=== PATIENT | female | born 1955 | race Caucasian/White ===

== ENCOUNTER 2018-04-14 10:40 | Observation (INO) ==
--- NOTE | 2018-04-14 12:05 | Emergency Department Note ---
Disposition Clinical Impression: Deep vein thrombosis of lower extremity Qualifiers: Affected thrombotic vein of extremity: unspecified lower extremity distal vein Chronicity: acute Laterality: right Qualified Code(s): I82.4Z1 - Acute embolism and thrombosis of unspecified deep veins of right distal lower extremity Disposition: Admitted As Inpatient Condition: Fair Referrals: Karen Thompson CNP [Primary Care Provider] - Forms: ED Satisfaction Letter General Adult HPI - General Chief complaint: ED Extremity Problem,Nontraumatic Stated complaint: Right leg swelling/pain Time Seen by Provider: 04/14/18 10:59 Source: patient Limitations: no limitations Nursing Notes Reviewed: Yes Vital Signs Reviewed: Yes - History of Present Illness Pain Scale: 10 - Related Data Previous Rx's Medication Instructions Recorded traMADol [Ultram] 50 mg PO Q6HR #12 tablet 10/19/15 Allergies Allergy/AdvReac Type Severity Reaction Status Date / Time Diclofenac [From Voltaren] Allergy See Verified 10/19/15 00:08 Comments etodolac Allergy See Verified 10/19/15 00:08 Comments ibuprofen Allergy See Verified 10/19/15 00:08 Comments Review of Systems: Pain and swelling to right lower extremity. All systems ED: reviewed and negative except as stated. Past Medical History - Past Medical History Medical history: Reports: arthritis, GERD, hyperlipidemia, hypertension Psychiatric history: Reports: anxiety, depression - Social History Smoking Status: Never smoker Smokeless Tobacco Status: No Alcohol use: Reports: none Drug use: Reports: none Physical Exam Temperature is 97.7, pulse is 69, respirations 18, BP 126/64, pulse ox is 99%, she weighs 101 kg. She is alert and nontoxic in appearance no acute distress. HEENT is normocephalic PERRL airways midline supple neck no meningeal signs no carotid bruits. Cardiovascular is regular rate and rhythm without rubs or JVD. Lungs are clear to auscultation bilaterally with good aeration Abdomen soft nonsurgical good bowel sounds no masses Extremities are present 4 with good distal pulses Refill is brisk. She does have edema in both legs right greater than left with tenderness to the right calf. Dermatologic she does have psoriasis on her legs. No signs of acute cellulitis. Neurologic no focal deficits;cranial nerve ,motor and sensory exam intact, she is up and and ambulatory, moves all extremities, alert person place and time GCS is 15. - General Limitations: no limitations General appearance: alert, in no apparent distress Course Vital Signs Temperature 97.7 F 04/14/18 10:46 Pulse Rate 69 04/14/18 10:46 Respiratory Rate 18 04/14/18 10:46 Blood Pressure 126/64 04/14/18 10:46 O2 Sat by Pulse Oximetry 99 04/14/18 10:46 Temperature 97.7 F 04/14/18 10:46 Pulse Rate 69 04/14/18 10:46 Respiratory Rate 18 04/14/18 10:46 Blood Pressure 126/64 04/14/18 10:46 O2 Sat by Pulse Oximetry 99 04/14/18 10:46 Oxygen Delivery Oxygen Delivery Room Air Medical Decision Making - MDM Narrative Medical decision making narrative: We will check labs, DVT study an EKG and reassess. She is in agreement with plan. 1330 hrs.: Per the notes and speaking with the mammography technician she has multiple acute DVTs in the right lower extremity, were not start her on heparin here and admit her. Waiting a hospital to call back in bed placement. Patient's in agreement with plan. Serene Lopez [facility] 1955 [id number] 04/14/18 12:37 - Vascular Preliminary by Juan M Wood [facility] Num: [id number] : 1955 Patient Age: 62 RT LE Venous Doppler preliminary. RT leg appears acute thrombus in deep veins RT iliac v distal, CFV, SFV, POP V and PER V. RT superfical veins LSV and GSV also appear to have acute thrombus. Initialized on 04/14/18 12:37 - END OF NOTE 1338 hrs.: Spoke with hospitalist they will admit like me to speak with vascular surgery about this patient also. Patient's in agreement with plan. 1331 hrs.: Patient in EKG performed shows a sinus rhythm, rate 58, QRS is 88, QTC is 414 no signs of acute ischemia did have a PAC. Comparison EKG done in 2018 or changes except for rate. 1343 hrs.: Spoke with Dr. Roy who is on for vascular surgery and he said he be happy to see the patient on the floor. We will place a consult. - Lab Data Result diagrams: 04/14/18 12:08 04/14/18 12:08 Lab Results 04/14/18 04/14/18 04/14/18 Range/Units 12:08 12:08 12:08 WBC 8.2 (4.3-11.1) K/mcL RBC 3.65 L (3.82-4.97) M/mcL Hgb 10.8 L (11.5-15.4) g/dL Hct 34.4 L (35.3-44.9) % MCV 94.2 (83.0-100.0) fL MCH 29.6 (28.0-33.3) pg MCHC 31.4 L (31.6-35.5) g/dL RDW 14.3 (11.5-14.5) % Plt Count 193 (140-400) K/mcL MPV 9.9 (9.4-12.4) fL Immature Gran % 1.0 (0-4) % Seg Neutrophils % 57.7 % Lymphocytes % 30.6 % Monocytes % 5.1 % Eosinophils % 5.0 % Basophils % 0.6 % Neutrophils # 4.7 (1.6-8.9) K/mcL Lymphocytes # 2.5 (0.6-4.6) K/mcL Monocytes # 0.4 (0.0-1.3) K/mcL Eosinophils # 0.4 (0.0-0.6) K/mcL Basophils # 0.1 (0.0-0.2) K/mcL PT 11.6 (9.4-12.1) Seconds INR 1.0 APTT 26.6 (26.0-36.0) Seconds Heparin Anti-Xa, Unfract 0.00 L (0.30-0.70) IU/mL Sodium 138 (136-145) mEq/L Potassium 4.1 (3.5-5.1) mEq/L Chloride 107 (98-107) mEq/L Carbon Dioxide 23 (23-29) mEq/L BUN 21 (8-23) mg/dL Creatinine 0.88 (0.60-1.20) mg/dL Est GFR ( Amer) > 60 (> 60) Est GFR (Non-Af Amer) > 60 (> 60) BUN/Creatinine Ratio 24 (6-26) Glucose 111 H (70-105) mg/dL Calculated Osmolality 290 (280-300) Calcium 8.8 (8.6-10.3) mg/dL Attestation Statement - Attestation Attestation: Chief complaint is possible blood clot in right lower extremity. History this is a 62-year-old female she comes in today she said for last couple days she has had swelling in her right lower extremity. She is worried that she could have a blood clot she had one in the leg years ago. She cannot remember how long ago that was. She is not any blood thinners at this time but had to be at that time. She states that she has had no shortness of breath or chest pain. She said the other leg is swollen which is normal but she says she has no pain there. She does have good pulses she does have more swelling in the right leg than the left. She has no signs of acute cellulitis at this time but she does have psoriasis on her legs which she says is normal. Past medical history reviewed, nurse's notes reviewed allergies reviewed mid list reviewed.
[2018-04-14 12:28] LABS: Basophils # 0.1 K/mcL (0.0-0.2); Basophils % 0.6 %; Eosinophils # 0.4 K/mcL (0.0-0.6); Hematocrit 34.4 % (35.3-44.9); Hemoglobin 10.8 g/dL (11.5-15.4); Lymphocytes # 2.5 K/mcL (0.6-4.6); Lymphocytes % 30.6 %; Mean Corpuscular HGB Conc 31.4 g/dL (31.6-35.5); Mean Corpuscular Hemoglobin 29.6 pg (28.0-33.3); Mean Corpuscular Volume 94.2 fL (83.0-100.0); Mean Platelet Volume 9.9 fL (9.4-12.4); Monocytes # 0.4 K/mcL (0.0-1.3); Monocytes % 5.1 %; Neutrophils # 4.7 K/mcL (1.6-8.9); Platelet Count 193 K/mcL (140-400); Red Blood Count 3.65 M/mcL (3.82-4.97); Red Cell Distribution Width 14.3 % (11.5-14.5); Segmented Neutrophils % 57.7 %
[2018-04-14] MEDS ORDERED: *HR* Heparin 5,000 UNIT/ML VIAL IVP PRN ×2 (12:52)
[2018-04-14] MEDS ORDERED: *HR* Heparin 5,000 UNIT/ML VIAL IVP ONE (12:52)
[2018-04-14 12:53] LABS: Activated Partial Thrombo Time 26.6 Seconds (26.0-36.0)
[2018-04-14 13:17] LABS: BUN/Creatinine Ratio 24 (6-26); Blood Urea Nitrogen 21 mg/dL (8-23); Calcium 8.8 mg/dL (8.6-10.3); Carbon Dioxide 23 mEq/L (23-29); Chloride 107 mEq/L (98-107); Glucose 111 mg/dL (70-105); Osmolality,Calculated 290 (280-300); Potassium 4.1 mEq/L (3.5-5.1); Sodium 138 mEq/L (136-145); eGFR For Non-African Americans > 60 (> 60)
[2018-04-14 13:22] LABS: Prothrombin Time 11.6 Seconds (9.4-12.1)
[2018-04-14] MEDS: Heparin 25,000 UNIT/250 ML D5W 25,000 UNIT/250 ML IV.SOLN IVC SCH (13:56)
[2018-04-14] MEDS ORDERED: Naloxone 0.4 MG/ML INJ IVP PRN (14:02)
[2018-04-14] MEDS ORDERED: Acetaminophen 325 MG TABLET PO PRN (14:02)
[2018-04-14] MEDS ORDERED: *HR* HYDROcodone/Acet 5/325 mg TABLET PO PRN (14:02)
--- NOTE | 2018-04-14 14:05 | Internal Med History&Physical ---
Date of Encounter: 04/14/18 Time of Encounter: 13:40 Internal Medicine - H&P: HPI Chief complaint: R leg swelling and pain Admitted From: Home History of present illness: Ms. Lopez is a 62 year old female with history of previous right leg DVT, asthma, HLD, restless leg syndrome, GERD, who presented to the ED with progressive worsening right leg pain. Associated with swelling. No recent immobilization or surgery. Denies any drainage from her leg. No chest pain, SOB, palpitation, hemoptysis, orthopnea, or PND. No history of hematemesis, hematochezia, melena, or bright red blood per rectum. Denies any cough, sputum production, abdominal pain, or dysuria. In the ED, she was afebrile and hemodynamically stable. Satting 99% on room air. Labwork was largely unremarkable except for hemoglobin of 10.8. Doppler of the lower extremity revealed extensive R LE DVT involving iliac, CFV, SFV, popliteal, peroneal, LSV, as well as GSV. Patient was started on heparin drip and admitted for further management with vascular consultation. Past Med Surg Social Fam HX - Past Medical History Medical history: arthritis, asthma, DVT, GERD, hyperlipidemia Additional medical history: restless leg syndrome Psychiatric history: anxiety, depression - Social History Smoking Status: Never smoker Smokeless Tobacco Status: No Alcohol use: none Drug use: none - Additional Family History Additional family history: No family history of coagulopathy or thrombophilia Internal Medicine - H&P: Meds traMADol [Ultram] 50 mg PO Q6HR #12 tablet 10/19/15 [Rx] Allergy/AdvReac Type Severity Reaction Status Date / Time Diclofenac [From Voltaren] Allergy See Verified 10/19/15 00:08 Comments etodolac Allergy See Verified 10/19/15 00:08 Comments ibuprofen Allergy See Verified 10/19/15 00:08 Comments All Systems PM: A 10-system review of systems was performed and is negative for pertinent findings except as documented above in the HPI. - Constitutional Vitals: Temp Pulse Resp BP Pulse Ox 97.7 F 69 18 126/64 99 04/14/18 10:46 04/14/18 10:46 04/14/18 10:46 04/14/18 10:46 03/05/19 10:46 Exam: General: Alert and oriented, not in acute distress. HEENT:EOMI, pupils equal, round and reactive. Cardiovascular:Normal S1 & S2, No JVD. Pulse regular. Lungs: clear to auscultation, no wheezes/rales Abdomen:Soft, non-tender, no rigidity. Extremities: Diffuse swelling of the right leg with areas of tenderness along the calf. DP palpable. Able to move her R foot Neurological:Normal cognition and motor skills. Non-focal Skin: No rash Pulses:Carotid and radial pulses normal +2. 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, reports that her last episode was in Reports that she was at one point on Coumadin but discontinued Started on heparin drip, continue Will need lifelong anticoagulation given her recurrent episodes and outpatient hematology follow-up Vascular surgery consult Qualifiers: Affected thrombotic vein of extremity: unspecified lower extremity distal vein Chronicity: acute Laterality: right Qualified Code(s): I82.4Z1 - Acute embolism and thrombosis of unspecified deep veins of right distal lower extremity (2) Asthma Current Visit: Yes Status: Chronic Assessment and plan: Not in exacerbation resume home inhalers once reconciled Qualifiers: Asthma severity: unspecified severity Asthma persistence: unspecified Asthma complication type: unspecified Qualified Code(s): J45.909 - Unspecified asthma, uncomplicated (3) HLD (hyperlipidemia) Current Visit: Yes Status: Chronic Assessment and plan: Resume home meds once reconciled Qualifiers: Hyperlipidemia type: unspecified Qualified Code(s): E78.5 - Hyperlipidemia, unspecified (4) RLS (restless legs syndrome) Current Visit: Yes Status: Chronic Assessment and plan: Resume home meds once reconciled - Time Spent With Patient Total time spent is greater than 50% in coordination of care (as documented) at patient's floor/unit and/or counseling patient: 25 - 35 minutes
[2018-04-14] MEDS ORDERED: Albuterol 2.5 MG/3 ML NEBULIZER IH PRN (14:12)
--- NOTE | 2018-04-14 17:43 | Anesthesia Evaluation PreOp ---
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) Other Medical History: GERD, Other (obesity BMI=41.3) Anesthesia History: No Prior Anesthetic Complications, Past Anesthesia Alcohol Use: none Drug use: none Medications and Allergies Beclomethasone Dip 40mcg REDIH [Qvar 40 mcg REDIHALER] 1 puff IH BID 04/14/18 [History] DiphenhydraMINE [Benadryl] 25 mg PO DAILY PRN 04/14/18 [History] Ferrous Sulfate [Iron] 325 mg PO BID 04/14/18 [History] Fluticasone Propionate Nasal [Flonase] 50 mcg NS DAILY 04/14/18 [History] Gabapentin [Neurontin] 300 mg PO BID 04/14/18 [History] Montelukast [Singulair] 10 mg PO HS 04/14/18 [History] Omeprazole [PriLOSEC] 40 mg PO DAILY 04/14/18 [History] Simvastatin [Zocor] 40 mg PO HS 04/14/18 [History] rOPINIRole [Requip] 1 mg PO QPM 04/14/18 [History] Allergy/AdvReac Type Severity Reaction Status Date / Time Diclofenac [From Voltaren] Allergy See Verified 10/19/15 00:08 Comments etodolac Allergy See Verified 10/19/15 00:08 Comments ibuprofen Allergy See Verified 10/19/15 00:08 Comments - Meds/Allergy Pre-op Review Medications Reviewed: Yes Allergies Reviewed: Yes Beta Blockers on Current Med List: No Anesthesia Results - Labs 04/14/18 12:08 04/14/18 12:08 - Imaging EKG: report reviewed (06/11/2017 SINUS RHYTHM) Additional studies: 06/02/2017 Echo Impressions: LVEF 60%. Mild left ventricular diastolic dysfunction. Normal right ventricular structure and function. No significant valvular dysfunction. No pulmonary hypertension. Anesthesia Exam Vital Signs/O2 Sat, Most Current Temp Pulse Resp BP Pulse Ox 98.0 F 69 17 106/65 96 04/14/18 19:13 04/14/18 19:13 04/14/18 19:13 04/14/18 19:13 04/14/18 19:13 Height: 5'3''/1.6m Weight: 233 lbs/105.7 kg NPO (# of Hours): 8 Pain Scale: 6 (right leg) Pain Scale Used: Numeric (1 - 10) - HEENT Pupil (Motor): EOMI Mallampati: II Teeth: Edentulous Oral Opening: Greater than 3 - BRUSH FINISHER LOC: Oriented BRUSH FINISHER Motor: Normal RUE, Normal LUE, Normal RLE, Normal LLE, Normal Face BRUSH FINISHER Sensory: Normal: RUE, LUE, RLE, LLE, Face - Cardiac Rhythm: Regular Murmur: None - Pulmonary Breath Sounds: bilateral Clear Respiratory Effort: Symmetrical Anesthesia Assess/Plan ASA Score: 3 Level of consciousness: Cooperative, Oriented, Tranquil Anesthetic Plan: General Monitoring Plan: Standard Monitors Recovery Plan: PACU
--- NOTE | 2018-04-14 23:32 | Vascular/Endovasc Consult Note ---
Date of Encounter: 04/14/18 Time of Encounter: 16:10 Assessment and Plan (1) Deep vein thrombosis of lower extremity Current Visit: Yes Status: Acute The pathophysiology and natural history of venous disorders was discussed the patient and all questions were answered. The patient has extensive acute right lower extremity deep vein thrombosis. She has significant edema and pain. She is started on a heparin drip. She is no evidence of neurovascular compromise. She will continue with leg elevation and intravenous anticoagulation. She will be reassessed tomorrow. She has persistent symptoms she may require venous mechanical thrombectomy. The risks, benefits alternatives were discussed and all questions were answered. She expressed understanding and wishes to proceed necessary. Qualifiers: Affected thrombotic vein of extremity: iliac Chronicity: acute Laterality: right Qualified Code(s): I82.421 - Acute embolism and thrombosis of right iliac vein (2) HLD (hyperlipidemia) Current Visit: Yes Status: Chronic Qualifiers: Hyperlipidemia type: unspecified Qualified Code(s): E78.5 - Hyperlipidemia, unspecified - History of Present Illness Consult date: 04/14/18 Requesting physician: Matias Curry Consult reason: Deep vein thrombosis Chief complaint: Right lower surgery pain, tenderness and edema History of present illness: Ms. Lopez is a 62 year old female with a history of hyperlipidemia and anemia who presented to [facility] with acute onset pain, swelling and tenderness in the right lower extremity. She is noted to have 2+ edema in the right lower extremity. She underwent a venous duplex was found to have a significant DVT extending from the iliac vein to the tibial veins. She was started on intravenous heparin. Vascular surgery was counseled for further evaluation. The time of examination the patient reports pain and tenderness in the right lower extremity. She denies any motor or sensory deficits. She does report a previous episode of deep vein thrombosis. She denies any chest pain or shortness of breath. Past Med Surg Social Fam HX - Past Medical History Medical history: arthritis, asthma, DVT, GERD, hyperlipidemia Additional medical history: restless leg syndrome Psychiatric history: anxiety, depression - Past Surgical History Surgical History: no surgical history - Social History Smoking Status: Former smoker Smokeless Tobacco Status: No Alcohol use: none Drug use: none - Family History Mother Hx Family Respiratory Disorders: Yes (asthma) Hx Family Endocrine Disorder: Yes (DM) Hx Family Medical Disorders: Yes (varicose veins) Father Hx Family Cardiac Disorders: Yes Medications and Allergies Beclomethasone Dip 40mcg REDIH [Qvar 40 mcg REDIHALER] 1 puff IH DAILY 04/14/18 [History] DiphenhydraMINE [Benadryl] 50 mg PO BID PRN 04/14/18 [History] Ferrous Sulfate [Iron] 325 mg PO BID 04/14/18 [History] Fluticasone Propionate Nasal [Flonase] 1 spray NS DAILY 04/14/18 [History] Gabapentin [Neurontin] 300 mg PO BID 04/14/18 [History] Montelukast [Singulair] 10 mg PO QPM 04/14/18 [History] Omeprazole [PriLOSEC] 40 mg PO DAILY 04/14/18 [History] Simvastatin [Zocor] 40 mg PO HS 04/14/18 [History] rOPINIRole [Requip] 1 mg PO QPM 04/14/18 [History] Ibuprofen [Ibu-200] 400 mg PO DAILY PRN 04/15/18 [History] Allergy/AdvReac Type Severity Reaction Status Date / Time Diclofenac [From Voltaren] Allergy Rash Verified 04/15/18 14:45 etodolac Allergy Rash Verified 04/15/18 14:45 ibuprofen Allergy RASH, HIVES Verified 04/15/18 14:45 All Systems Review: The remainder of the systems were reviewed and are negative - Constitutional Constitutional: no chills, no fatigue, no fever(s) - Cardiovascular Cardiovascular: no chest pain at rest, no chest pain with exertion, no dyspnea at rest, no dyspnea on exertion Exam Vital Signs, Last 4 Hours Temp Pulse Resp BP Pulse Ox 04/14/18 23:18 97.9 F 64 14 118/77 98 General: Present: Conversant, No Apparent Distress HEENT: Present: Normocephaly, Pupils equal Neck: Absent: JVD, Lymphadenopathy, Left Carotid bruit, Right Carotid bruit Cardiac: Present: Reg Rate and Rhythm, Normal S1 and S2 Lungs: Present: Normal Breath Sounds Neuro: Present: Alert and responsive, No focal deficits noted Abdomen: Present: Soft, Non-tender Vascular: Present: Normal capillary refill, Pulse, normal, Edema (2+ right lower extremity edema). Absent: Cyanosis Skin: Present: No rashes noted on visualized skin Consult Discharge Plan - Plan Referrals: Karen Thompson, SHIFT FOREMAN [Primary Care Provider] -
[2018-04-15] MEDS: rOPINIRole 1 MG TABLET PO SCH ×2 (02:57→17:21)
[2018-04-15 05:13] LABS: Basophils # 0.1 K/mcL (0.0-0.2); Basophils % 0.6 %; Eosinophils # 0.5 K/mcL (0.0-0.6); Eosinophils % 6.3 %; Hematocrit 34.6 % (35.3-44.9); Immature Granulocytes % 1.1 % (0-4); Lymphocytes % 37.3 %; Mean Corpuscular HGB Conc 31.8 g/dL (31.6-35.5); Mean Corpuscular Hemoglobin 29.6 pg (28.0-33.3); Mean Corpuscular Volume 93.3 fL (83.0-100.0); Mean Platelet Volume 9.9 fL (9.4-12.4); Monocytes # 0.5 K/mcL (0.0-1.3); Monocytes % 5.6 %; Neutrophils # 3.9 K/mcL (1.6-8.9); Platelet Count 206 K/mcL (140-400); Red Blood Count 3.71 M/mcL (3.82-4.97); Red Cell Distribution Width 14.3 % (11.5-14.5); Segmented Neutrophils % 49.1 %
[2018-04-15 05:29] LABS: BUN/Creatinine Ratio 17 (6-26); Blood Urea Nitrogen 18 mg/dL (8-23); Calcium 8.9 mg/dL (8.6-10.3); Carbon Dioxide 27 mEq/L (23-29); Chloride 105 mEq/L (98-107); Glucose 113 mg/dL (70-105); Osmolality,Calculated 287 (280-300); Potassium 3.9 mEq/L (3.5-5.1); Sodium 137 mEq/L (136-145); eGFR For Non-African Americans 51 (> 60)
--- NOTE | 2018-04-15 06:37 | Electrocardiograph Report ---
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
[2018-04-15] MEDS: Gabapentin 300 MG CAPSULE PO SCH ×3 (08:07→21:40)
[2018-04-15] MEDS: MOMETASONE FUROATE 100 mcg Inhaler IH SCH ×2 (08:11→21:04)
[2018-04-15] MEDS: Fluticasone Propionate Nasal 50 MCG/SPRAY BOTTLE NS SCH (08:35)
--- NOTE | 2018-04-15 09:34 | Internal Med Progress Note ---
<Kristi Kennedy - Last Filed: 04/15/18 09:50> Hospitalist Progress Note - Encounter Date of Encounter: 04/15/18 - Exam Vitals: Temp Pulse Resp BP Pulse Ox 97.9 F 69 17 139/81 93 04/15/18 08:10 04/15/18 08:10 04/15/18 08:10 04/15/18 08:10 04/15/18 08:10 - Assessment and Plan (1) Deep vein thrombosis of lower extremity Current Visit: Yes Status: Acute (2) Asthma Current Visit: Yes Status: Chronic (3) HLD (hyperlipidemia) Current Visit: Yes Status: Chronic (4) RLS (restless legs syndrome) Current Visit: Yes Status: Chronic - Time Spent with Patient Total time spent is greater than 50% in coordination of care (as documented) at patient's floor/unit and/or counseling patient: Internal Medicine: Result - Labs CBC & Chem 7: 04/15/18 04:59 04/15/18 04:59 Labs: Short CBC 04/14/18 04/15/18 Range/Units 12:08 04:59 WBC 8.2 8.0 (4.3-11.1) K/mcL Hgb 10.8 L 11.0 L (11.5-15.4) g/dL Hct 34.4 L 34.6 L (35.3-44.9) % Plt Count 193 206 (140-400) K/mcL Neutrophils # 4.7 3.9 (1.6-8.9) K/mcL BMP 04/14/18 04/15/18 12:08 04:59 Sodium 138 137 Potassium 4.1 3.9 Chloride 107 105 Carbon Dioxide 23 27 BUN 21 18 Creatinine 0.88 1.08 Glucose 111 H 113 H Calcium 8.8 8.9 - ABG Interpretation ABG results: PT/INR, D-dimer PT 11.6 Seconds (9.4-12.1) 04/14/18 12:08 Consult Discharge Plan - Plan Referrals: Karen Thompson, TRADING FLOOR OPERATOR [Primary Care Provider] - - Attending Attestation The history, physical exam, and medical decision making was performed by the medical student Rupesh either while I was physically present and actively involved or I personally re-performed the exam and medical decision making. I have verified the accuracy of the medical student's documentation with regards to the history, physical exam findings, and medical decision making. Ms Song has pmhx rle dvt previously on coumadin, restless leg syndrome and presented with rle pain and swelling. She is being observed for extensive RLE DVT. Awake, friend at bedside, pleasant. notes improving edema and tightness in rle. pain tolerable. notes she had erythema on lower leg yesterday which is gone. no cp, pressure, sob, palpitations. gen- alert, awake,appears stated age eyes- pupils equal round cv- reg rate and rhythm, normal s1,s2, no murmurs appreciated, non pitting edema RLE, dp/pt pulses intact lungs- ctabl, no wheezing, rhonchi or crackles, normal resp effort on ra neuro- AAOx3, sensation to light touch RLE intact Extensive RLE DVT Iliac, CFV, SFV, Popliteal, Peroneal, LSV, GSV- without any s/s of PE- vasc surg following for need for thrombectomy, cont hep gtt, fu vasc surg recs today, will transition to oral prior to discharge and arrange hematology appt as outpt for further work up of unprovoked second clot restless leg syndrome- cont requip <Ashly Goddard - Last Filed: 04/15/18 17:40> Hospitalist Progress Note - Encounter Date of Encounter: 04/15/18 Time of Encounter: 08:45 - Subjective Interval History: Patient seen and examined at bedside. Ms. Song was sitting comfortably up in the bed. She states that her right leg feels tight and is still hurting her but it feels more tolerable than it has been since 3 days ago when the pain began. She admits that her right leg is still swollen and that she has lesion on her right ankle which she obtained when she hit her leg against her bed frame. The lesion is warm and discolored most likely due to venous stasis. She currently denies any CP, SOB, nausea, vomiting, diarrhea, fever, weakness, numbness, and tingling. - Exam Vitals: Temp Pulse Resp BP Pulse Ox 97.9 F 69 17 139/81 93 04/15/18 08:10 04/15/18 08:10 04/15/18 08:10 04/15/18 08:10 04/15/18 08:10 Exam: General- alert and oriented, no acute distress Head- normocephalic, atraumatic Eyes- PERRL, EOMI Neck- supple, no lymphadenopathy CV- RRR, no murmurs, no gallops, no rubs; 2+ pitting edema present in R lower extremity Resp- LCTAB, no wheezing, no rhonchi, no rales Abdomen- soft, nontender, BSx4, no peritoneal signs Musculoskeletal- no deformity noted Neuro- no focal deficits, normal speech - Assessment and Plan (1) Deep vein thrombosis of lower extremity Current Visit: Yes Status: Acute Assessment and Plan: Patient reports previous R popliteal DVT in , stated that she was on coumadin but it was discontinued Patient thinks she had a RLE blood clot in between and today, however patient unable to provide further details Former tobacco use- 1-2 cigarettes daily for roughly 10 years Vascular surgery consult recommends keeping the leg elevated and continue IV heparin, will reassess in the morning to determine if surgery is needed Will need lifelong anticoagulation upon discharge Potential for embolism, will closely monitor HR, RR, and oxygen status overnight Will review records for specific DVT history Continue on heparin drip Monitor for signs of active bleeding, CBC in the AM Suspect we will transition to oral anticoagulation tomorrow if symptoms improve Follow up with Hematology as outpatient (2) Asthma Current Visit: Yes Status: Chronic Assessment and Plan: Not in exacerbation SpO2 is 96% on room air Continue home bronchodilators Duonebs PRN (3) HLD (hyperlipidemia) Current Visit: Yes Status: Chronic Assessment and Plan: Continue home simvastatin (4) RLS (restless legs syndrome) Current Visit: Yes Status: Chronic Assessment and Plan: Continue home ropinirole (5) Former cigarette smoker Current Visit: Yes Status: Acute Assessment and Plan: Remote history of tobacco use, 1-2 cigarettes daily for approximately 10 years DVT Prophylaxis: Heparin drip - Time Spent with Patient Total time spent is greater than 50% in coordination of care (as documented) at patient's floor/unit and/or counseling patient: Plan of Care Discussed with: patient Internal Medicine: Result - Labs CBC & Chem 7: 04/15/18 04:59 04/15/18 04:59 Labs: Short CBC 04/14/18 04/15/18 Range/Units 12:08 04:59 WBC 8.2 8.0 (4.3-11.1) K/mcL Hgb 10.8 L 11.0 L (11.5-15.4) g/dL Hct 34.4 L 34.6 L (35.3-44.9) % Plt Count 193 206 (140-400) K/mcL Neutrophils # 4.7 3.9 (1.6-8.9) K/mcL BMP 04/14/18 04/15/18 12:08 04:59 Sodium 138 137 Potassium 4.1 3.9 Chloride 107 105 Carbon Dioxide 23 27 BUN 21 18 Creatinine 0.88 1.08 Glucose 111 H 113 H Calcium 8.8 8.9 - ABG Interpretation ABG results: PT/INR, D-dimer PT 11.6 Seconds (9.4-12.1) 04/14/18 12:08 ____ <Kristi Kennedy - Last Filed: 04/15/18 09:50> (1) Deep vein thrombosis of lower extremity Qualifiers: Affected thrombotic vein of extremity: iliac Chronicity: acute Laterality: right Qualified Code(s): I82.421 - Acute embolism and thrombosis of right iliac vein (2) Asthma Qualifiers: Asthma severity: unspecified severity Asthma persistence: unspecified Asthma complication type: unspecified Qualified Code(s): J45.909 - Unspecified asthma, uncomplicated (3) HLD (hyperlipidemia) Qualifiers: Hyperlipidemia type: unspecified Qualified Code(s): E78.5 - Hyperlipidemia, unspecified <Ashly Goddard - Last Filed: 04/15/18 17:40> (1) Deep vein thrombosis of lower extremity Qualifiers: Affected thrombotic vein of extremity: iliac Chronicity: acute Laterality: right Qualified Code(s): I82.421 - Acute embolism and thrombosis of right iliac vein (2) Asthma Qualifiers: Asthma severity: unspecified severity Asthma persistence: unspecified Asthma complication type: unspecified Qualified Code(s): J45.909 - Unspecified asthma, uncomplicated (3) HLD (hyperlipidemia) Qualifiers: Hyperlipidemia type: unspecified Qualified Code(s): E78.5 - Hyperlipidemia, unspecified
--- NOTE | 2018-04-15 10:01 | Vascular/[facility] Progress Note ---
Date of Encounter: 04/15/18 Time of Encounter: 08:35 - Assessment and plan (1) Deep vein thrombosis of lower extremity Current Visit: Yes Status: Acute The patient has acute right lower extremity deep vein thrombosis. She has 2+ edema. She has subjective and objective improvement of her symptoms since yesterday. It is recommended that this time she continue with intravenous heparin. If patient continues to improve with intravenous heparin she may be transitioned to oral coagulation. We will reassess patient tomorrow to determine if venous mechanical thrombectomy is required. Qualifiers: Qualified Code(s): I82.421 - Acute embolism and thrombosis of right iliac vein (2) HLD (hyperlipidemia) Current Visit: Yes Status: Chronic Qualifiers: Qualified Code(s): E78.5 - Hyperlipidemia, unspecified - Subjective Interval history: The patient reports subjective improvement of the right lower extremity pain and tenderness. She reports some decreased swelling. She denies any chest pain or shortness of breath. Vital Signs, Last 4 Hours Temp Pulse Resp BP Pulse Ox 04/15/18 08:10 97.9 F 69 17 139/81 93 - Physical Examination General: Present: Conversant, No Apparent Distress HEENT: Present: Pupils equal Cardiac: Present: Reg Rate and Rhythm Lungs: Present: Normal Breath Sounds Neuro: Present: Alert and responsive, Motor nerves grossly intact, Sensory nerves grossly intact Vascular: Present: Normal capillary refill, Pulse, normal (Pedal signals present), Edema (2+ right lower extremity edema), Other (Compartments soft). Absent: Cyanosis Abdomen: Present: Soft, Non-tender Skin: Absent: Wound/ulcer(s) Results 04/15/18 04:59 04/15/18 04:59 Lab Results, Last 24 hours 04/14/18 04/14/18 04/14/18 12:08 12:08 12:08 WBC 8.2 Hgb 10.8 L Hct 34.4 L Plt Count 193 INR 1.0 APTT 26.6 Sodium 138 Potassium 4.1 Chloride 107 Carbon Dioxide 23 BUN 21 Creatinine 0.88 Glucose 111 H Calcium 8.8 04/15/18 04/15/18 04:59 04:59 WBC 8.0 Hgb 11.0 L Hct 34.6 L Plt Count 206 INR APTT Sodium 137 Potassium 3.9 Chloride 105 Carbon Dioxide 27 BUN 18 Creatinine 1.08 Glucose 113 H Calcium 8.9 Consult Discharge Plan - Plan Referrals: Karen Thompson, FIXED ROUTE BUS OPERATOR [Primary Care Provider] -
[2018-04-15] MEDS: Heparin 25,000 UNIT/250 ML D5W 25,000 UNIT/250 ML IV.SOLN IVC SCH (11:57)
--- NOTE | 2018-04-15 16:29 | Event Note ---
Date of Encounter: 04/15/18 Time of Encounter: 15:33 Received Mobile [employer] message from patient's RN stating pt sitting up in bed and was without complaints, but her telemetry was showing Afib with HR 80's-140's. No known h/o Afib. Pt seen promptly after receiving message. There was concern for possible PE given her extensive RLE DVT. On entering the room, pt was in her bed and appeared comfortable with no signs of distress, IV Heparin was running. STAT EKG ordered. Patient denies any shortness of breath, dyspnea, chest pain, heart palpitations, or racing heart. GEN: no diaphoresis, no acute distress, alert, pleasant CV: Irregular rhythm, HR 60's on monitor, pulse irregular, no JVD appreciated RESP: no tachypnea, no respiratory distress, CTAB from apices to bases, no wheezing, no rhonchi, no rales NEURO: AAO x 3, moves all extremities spontaneously, no facial droop, no slurred speech, answers questions appropriately STAT EKG showed: sinus rhythm, but marked sinus arrhythmia; no ischemic changes Plan Repeat EKG in AM STAT magnesium, replace if Mg < 2.0 10 mEq K ordered, was mildly hypokalemic (3.9) Will replete magnesium if < 2.0 Continue heparin gtt Continue telemetry monitoring
[2018-04-15] MEDS ORDERED: Ipratropium/Albuterol Neb 3 ML IH PRN (18:44)
[2018-04-16 06:18] LABS: Basophils # 0.1 K/mcL (0.0-0.2); Basophils % 0.7 %; Eosinophils # 0.4 K/mcL (0.0-0.6); Eosinophils % 5.6 %; Hematocrit 34.3 % (35.3-44.9); Immature Granulocytes % 1.3 % (0-4); Lymphocytes # 2.4 K/mcL (0.6-4.6); Lymphocytes % 34.2 %; Mean Corpuscular HGB Conc 32.1 g/dL (31.6-35.5); Mean Corpuscular Hemoglobin 29.6 pg (28.0-33.3); Mean Corpuscular Volume 92.2 fL (83.0-100.0); Mean Platelet Volume 9.8 fL (9.4-12.4); Monocytes # 0.4 K/mcL (0.0-1.3); Monocytes % 6.2 %; Neutrophils # 3.7 K/mcL (1.6-8.9); Platelet Count 235 K/mcL (140-400); Red Blood Count 3.72 M/mcL (3.82-4.97); Red Cell Distribution Width 14.4 % (11.5-14.5)
[2018-04-16 06:33] LABS: BUN/Creatinine Ratio 16 (6-26); Blood Urea Nitrogen 15 mg/dL (8-23); Carbon Dioxide 27 mEq/L (23-29); Chloride 105 mEq/L (98-107); Glucose 122 mg/dL (70-105); Magnesium 2.1 mg/dL (1.6-2.6); Osmolality,Calculated 288 (280-300); Potassium 4.1 mEq/L (3.5-5.1); Sodium 138 mEq/L (136-145); eGFR For Non-African Americans > 60 (> 60)
--- NOTE | 2018-04-16 07:52 | Internal Med Progress Note ---
<Kristi Kennedy - Last Filed: 04/16/18 10:06> Hospitalist Progress Note - Encounter Date of Encounter: 04/16/18 - Exam Vitals: Temp Pulse Resp BP Pulse Ox 97.8 F 60 12 127/77 98 04/16/18 08:33 04/16/18 08:33 04/16/18 08:33 04/16/18 08:33 04/16/18 08:33 - Assessment and Plan (1) Deep vein thrombosis of lower extremity Current Visit: Yes Status: Acute (2) Asthma Current Visit: Yes Status: Chronic (3) HLD (hyperlipidemia) Current Visit: Yes Status: Chronic (4) RLS (restless legs syndrome) Current Visit: Yes Status: Chronic - Time Spent with Patient Total time spent is greater than 50% in coordination of care (as documented) at patient's floor/unit and/or counseling patient: Internal Medicine: Result - Labs CBC & Chem 7: 04/16/18 05:48 04/16/18 05:48 Labs: Short CBC 04/16/18 Range/Units 05:48 WBC 7.1 (4.3-11.1) K/mcL Hgb 11.0 L (11.5-15.4) g/dL Hct 34.3 L (35.3-44.9) % Plt Count 235 (140-400) K/mcL Neutrophils # 3.7 (1.6-8.9) K/mcL BMP 04/16/18 05:48 Sodium 138 Potassium 4.1 Chloride 105 Carbon Dioxide 27 BUN 15 Creatinine 0.93 Glucose 122 H Calcium 9.0 - ABG Interpretation ABG results: PT/INR, D-dimer PT 11.6 Seconds (9.4-12.1) 04/14/18 12:08 Consult Discharge Plan - Plan Referrals: Karen Thompson, SUPERVISOR METAL PLACING [Primary Care Provider] - - Attending Attestation The history, physical exam, and medical decision making was performed by the medical student Rupesh either while I was physically present and actively involved or I personally re-performed the exam and medical decision making. I have verified the accuracy of the medical student's documentation with regards to the history, physical exam findings, and medical decision making. Ms Song has pmhx rle dvt previously on coumadin, restless leg syndrome and presented with rle pain and swelling. She is being observed for extensive RLE DVT. Awake, no family present. continued improvement in rle swelling and pain. Limping with walking and agreeable to pt eval. no cp, pressure, sob or palpitations. gen- alert, awake,appears stated age eyes- pupils equal round cv- reg rate and rhythm, normal s1,s2, no murmurs appreciated, non pitting edema RLE, dp/pt pulses intact RLE lungs- ctabl, no wheezing, rhonchi or crackles, normal resp effort on ra neuro- AAOx3, sensation to light touch RLE intact Extensive RLE DVT Iliac, CFV, SFV, Popliteal, Peroneal, LSV, GSV- without any s/s of PE- vasc surg following for need for thrombectomy, no intervention r equired thus far, cont hep gtt, will fu vasc surg recs today and may be able to transition to oral AC, will need to bradley check med and arrange hematology appt as outpt for further work up of unprovoked second clot, pt eval restless leg syndrome- cont requip brief Episode of tachycardia on tele yesterday- resolved without intervention- ekgs NSR, no ischemic changes, asx, cont tele and monitoring of lytes <Ashly Goddard - Last Filed: 04/16/18 16:32> Hospitalist Progress Note - Encounter Date of Encounter: 04/16/18 Time of Encounter: 08:00 - Subjective Interval History: Patient seen and examined at bedside. She states that she is feeling better but has been coughing up phlegm all night and this morning. She states that she fe els a little short of breath when she is coughing but feels fine after she gets up the phlegm. She denies any chest pain at any time. She admits that she has been sick off and on for 3 weeks and that she was told she has laryngitis but is feeling much better. The only thing still lingering is this cough. Her throat today does not look red. She states that her leg is improving and that she could easily get up and go to the bathroom with minimal pain. Her right leg feels less tight and the edema has improved down past her shins. She currently denies CP, nausea, vomiting, diarrhea, dizziness, weakness. - Exam Vitals: Temp Pulse Resp BP Pulse Ox 98.2 F 69 18 126/74 97 04/16/18 03:18 04/16/18 03:18 04/16/18 06:32 04/16/18 03:18 04/16/18 06:32 Exam: General- alert and oriented, no acute distress Head- normocephalic, atraumatic EENT- oral mucosa moist and pink, no nasal discharge, PERRL, EOMI Neck- supple, trachea midline, no lymphadenopathy CV- RRR, no murmurs, no gallops, no rubs Respiratory- LCTAB, no wheezing, no rhonchi, no rales Abdomen- soft, nontender, BSx4, no masses Extremities- swelling of RLE, no calf tenderness, DP palpable, able to move R foot Neuro- AAOx3 without focal deficits Skin- no rashes, no ulcers - Assessment and Plan (1) Deep vein thrombosis of lower extremity Current Visit: Yes Status: Acute Assessment and Plan: Patient reports previous R popliteal DVT in , stated that she was on coumadin but it was discontinued Patient thinks she had a second RLE DVT before today but cannot recall when that occurred Admits to former tobacco use-- stated she smoked 1-2 cigarettes daily for roughly 10 years Vascular surgery recommended to begin oral anticoagulation therapy and follow up as outpatient next week Patient on heparin drip Will continue to monitor vital signs overnight Due to social concerns, patient has unreliable transportation, we will check [facility] tomorrow for other options regarding oral anticoagulation other than Warfarin Patient will start oral anticoagulation tomorrow as long as patient remains stable Follow up with Hematology as outpatient (2) Asthma Current Visit: Yes Status: Chronic Assessment and Plan: Not in exacerbation SpO2 is 97% on room air today Continue home bronchodilators Duoneb PRN (3) HLD (hyperlipidemia) Current Visit: Yes Status: Chronic Assessment and Plan: Continue home simvastatin (4) RLS (restless legs syndrome) Current Visit: Yes Status: Chronic Assessment and Plan: Continue home ropinirole (5) Former cigarette smoker Current Visit: Yes Status: Acute Assessment and Plan: Hx of tobacco use, 1-2 cigarettes daily for approximately 10 years Stopped >20 years ago DVT Prophylaxis: Heparin drip - Time Spent with Patient Total time spent is greater than 50% in coordination of care (as documented) at patient's floor/unit and/or counseling patient: Internal Medicine: Result - Labs CBC & Chem 7: 04/16/18 05:48 04/16/18 05:48 Labs: Short CBC 04/16/18 Range/Units 05:48 WBC 7.1 (4.3-11.1) K/mcL Hgb 11.0 L (11.5-15.4) g/dL Hct 34.3 L (35.3-44.9) % Plt Count 235 (140-400) K/mcL Neutrophils # 3.7 (1.6-8.9) K/mcL BMP 04/16/18 05:48 Sodium 138 Potassium 4.1 Chloride 105 Carbon Dioxide 27 BUN 15 Creatinine 0.93 Glucose 122 H Calcium 9.0 - ABG Interpretation ABG results: PT/INR, D-dimer PT 11.6 Seconds (9.4-12.1) 04/14/18 12:08 <Kristi Kennedy - Last Filed: 04/16/18 10:06> (1) Deep vein thrombosis of lower extremity Qualifiers: Affected thrombotic vein of extremity: iliac Chronicity: acute Laterality: right Qualified Code(s): I82.421 - Acute embolism and thrombosis of right iliac vein (2) Asthma Qualifiers: Asthma severity: unspecified severity Asthma persistence: unspecified Asthma complication type: unspecified Qualified Code(s): J45.909 - Unspecified asthma, uncomplicated (3) HLD (hyperlipidemia) Qualifiers: Hyperlipidemia type: unspecified Qualified Code(s): E78.5 - Hyperlipidemia, unspecified <Ashly Goddard - Last Filed: 04/16/18 16:32> (1) Deep vein thrombosis of lower extremity Qualifiers: Affected thrombotic vein of extremity: iliac Chronicity: acute Laterality: right Qualified Code(s): I82.421 - Acute embolism and thrombosis of right iliac vein (2) Asthma Qualifiers: Asthma severity: unspecified severity Asthma persistence: unspecified Asthma complication type: unspecified Qualified Code(s): J45.909 - Unspecified asthma, uncomplicated (3) HLD (hyperlipidemia) Qualifiers: Hyperlipidemia type: unspecified Qualified Code(s): E78.5 - Hyperlipidemia, unspecified
[2018-04-16] MEDS: MOMETASONE FUROATE 100 mcg Inhaler IH SCH ×2 (07:59→21:08)
[2018-04-16] MEDS ORDERED: Vancomycin 1,000 MG, Sodium Chloride IRRigation 1,000 ML IR ONE (08:00)
--- NOTE | 2018-04-16 10:01 | Electrocardiograph Report ---
[address] [place] [address] Test Date: 2018-04-15 Pat Name: Serene Lopez Department: 114 Room: 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
--- NOTE | 2018-04-16 10:03 | Electrocardiograph Report ---
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
--- NOTE | 2018-04-16 10:16 | Vascular/[facility] Progress Note ---
Date of Encounter: 04/16/18 Time of Encounter: 10:00 - Assessment and plan (1) Deep vein thrombosis of lower extremity Current Visit: Yes Status: Acute The patient has acute right lower extremity deep vein thrombosis. Her edema has decreased and her pain has decreased as well with intravenous anticoagulation. Given these findings, mechanical thrombectomy is not required at this time. The patient may be transitioned to oral anticoagulation. She may be discharged after her anticoagulation is initiated from a vascular surgery standpoint. She will follow up in vascular clinic next week. Qualifiers: Affected thrombotic vein of extremity: iliac Chronicity: acute Laterality: right Qualified Code(s): I82.421 - Acute embolism and thrombosis of right iliac vein (2) HLD (hyperlipidemia) Current Visit: Yes Status: Chronic She was counseled regarding atherosclerotic risk factor reduction. Qualifiers: Hyperlipidemia type: unspecified Qualified Code(s): E78.5 - Hyperlipidemia, unspecified - Subjective Interval history: The patient reports that her leg is feeling much better today. She states that she is ambulating without difficulty. She denies chest pain or shortness of breath. Vital Signs, Last 4 Hours Temp Pulse Resp BP Pulse Ox 04/16/18 08:33 97.8 F 60 12 127/77 98 04/16/18 08:05 98.0 F 74 123/80 94 04/16/18 08:00 18 99 04/16/18 06:32 18 97 - Physical Examination General: Present: Conversant, No Apparent Distress HEENT: Present: Pupils equal Cardiac: Present: Reg Rate and Rhythm Lungs: Present: Normal Breath Sounds, No Wheeze, Rales, Rhonchi Neuro: Present: Alert and responsive, Motor nerves grossly intact, Sensory nerves grossly intact Vascular: Present: Normal capillary refill, Pulse, normal (Pedal signals present), Edema (To post right lower extremity edema). Absent: Cyanosis Abdomen: Present: Soft Skin: Present: No rashes noted on visualized skin Results 04/16/18 05:48 04/16/18 05:48 Lab Results, Last 24 hours 04/15/18 04/16/18 04/16/18 16:57 05:48 05:48 WBC 7.1 Hgb 11.0 L Hct 34.3 L Plt Count 235 Sodium 138 Potassium 4.1 Chloride 105 Carbon Dioxide 27 BUN 15 Creatinine 0.93 Glucose 122 H Calcium 9.0 Magnesium 1.6 2.1 Consult Discharge Plan - Plan Referrals: Karen Thompson, JAIMIE [Primary Care Provider] -
[2018-04-16] MEDS: Fluticasone Propionate Nasal 50 MCG/SPRAY BOTTLE NS SCH (12:09)
[2018-04-16] MEDS: Gabapentin 300 MG CAPSULE PO SCH ×2 (12:09→20:43)
[2018-04-16] MEDS: Heparin 25,000 UNIT/250 ML D5W 25,000 UNIT/250 ML IV.SOLN IVC SCH (13:42)
[2018-04-16] MEDS ORDERED: ceFAZolin 1,000 MG, Sodium Chloride IRRigation 1,000 ML IR ONE (17:30)
[2018-04-16] MEDS ORDERED: Alteplase (Cathflo) 10 MG in 0.9 % Sodium Chloride 50 ML IVPB ONE (17:30)
[2018-04-16] MEDS: rOPINIRole 1 MG TABLET PO SCH (17:46)
[2018-04-16] MEDS ORDERED: *HR* Warfarin 5 MG TABLET PO ONE (18:00)
[2018-04-16] MEDS ORDERED: Warfarin perPT PO PRN (18:00)
[2018-04-16] MEDS: traMADol 50 MG TABLET PO PRN (19:11)
[2018-04-17 01:49] LABS: Heparin anti-factor XA LMWH 0.42 IU/mL (0.50-1.10)
[2018-04-17 01:50] LABS: Prothrombin Time 11.3 Seconds (9.4-12.1)
[2018-04-17] MEDS ORDERED: Vancomycin 1,000 MG, Sodium Chloride IRRIG Soln 3,000 ML IR ONE (06:00)
[2018-04-17] MEDS: Gabapentin 300 MG CAPSULE PO SCH (07:46)
[2018-04-17] MEDS: traMADol 50 MG TABLET PO PRN (07:46)
[2018-04-17] MEDS: MOMETASONE FUROATE 100 mcg Inhaler IH SCH (07:56)
--- NOTE | 2018-04-17 08:01 | Internal Med Progress Note ---
Hospitalist Progress Note - Encounter Date of Encounter: 04/17/18 Time of Encounter: 08:20 - Subjective Interval History: Patient seen and examined at bedside. She states that she feels about the same as yesterday. Her R leg still feels tight but the swelling continues to slowly improve. Patient states that she still limps a little when she walks to the bathroom and asked if it would be alright if she used a cane when she gets to go home. She currently denies any chest pain, SOB, nausea, vomiting, diarrhea, dizziness, numbness, tingling. - Exam Vitals: Temp Pulse Resp BP Pulse Ox 97.6 F 61 18 116/83 95 04/17/18 07:11 04/17/18 07:11 04/17/18 07:56 04/17/18 07:11 04/17/18 07:56 Exam: General- alert and oriented, no acute distress Head- normocephalic, atrumatic EENT- oral mucosa moist and pink, no nasal discharge, PERRL, EOMI Neck- supple, trachea midline, no lymphadenopathy CV- RRR, no murmurs, no gallops, no rubs Respiratory- LCTAB, no wheezing, no rhonchi, no rales Abdomen- soft, nontender, BSx4, no masses Extremities- RLE swelling, no calf tenderness, DP palpable, able to move R foot Neuro- AAOx3 without focal deficits Skin- no rashes, no ulcers - Assessment and Plan (1) Deep vein thrombosis of lower extremity Current Visit: Yes Status: Acute (2) Asthma Current Visit: Yes Status: Chronic (3) HLD (hyperlipidemia) Current Visit: Yes Status: Chronic (4) RLS (restless legs syndrome) Current Visit: Yes Status: Chronic (5) Former cigarette smoker Current Visit: Yes Status: Acute - Time Spent with Patient Total time spent is greater than 50% in coordination of care (as documented) at patient's floor/unit and/or counseling patient: Internal Medicine: Result - Labs CBC & Chem 7: 04/16/18 05:48 04/16/18 05:48 - ABG Interpretation ABG results: PT/INR, D-dimer PT 11.3 Seconds (9.4-12.1) 04/17/18 01:30 Consult Discharge Plan - Plan Referrals: Karen Thompson, CASE HARDENER [Primary Care Provider] - (1) Deep vein thrombosis of lower extremity Qualifiers: Affected thrombotic vein of extremity: iliac Chronicity: acute Laterality: right Qualified Code(s): I82.421 - Acute embolism and thrombosis of right iliac vein (2) Asthma Qualifiers: Asthma severity: unspecified severity Asthma persistence: unspecified Asthma complication type: unspecified Qualified Code(s): J45.909 - Unspecified asthma, uncomplicated (3) HLD (hyperlipidemia) Qualifiers: Hyperlipidemia type: unspecified Qualified Code(s): E78.5 - Hyperlipidemia, unspecified
[2018-04-17] MEDS: Fluticasone Propionate Nasal 50 MCG/SPRAY BOTTLE NS SCH (09:42)
[2018-04-17 10:18] VITALS: BP 102/70
[2018-04-17] MEDS: Heparin 25,000 UNIT/250 ML D5W 25,000 UNIT/250 ML IV.SOLN IVC SCH (11:46)
[2018-04-17] MEDS ORDERED: *HR* Rivaroxaban 15 MG TABLET PO SCH (12:00)
--- NOTE | 2018-04-17 12:03 | Discharge Summary ---
- NOTES TO OUTPATIENT PROVIDER Notes to Outpatient Provider: Ms Song was diagnosed with extensive acute DVT in the RLE affecting nearly all veins. She is being discharged on xarelto. She was seen by vascular surgery and will follow up with them in one week. Please monitor hgb and for signs of bleeding outpt. She was noted to have arrhythmia on tele confirmed by cards to be atrial bigeminy, trigeminy and atrial tachycardia. No intervetnion or further work up is required. Orders not resulted at time of discharge: Pending orders 04/17/18 11:40 Heparin anti-factor XA UFH [COAG] Timed 04/18/18 04:00 INR/PT [Prothrombin Time INR] [COAG] AM 0400 04/19/18 04:00 INR/PT [Prothrombin Time INR] [COAG] AM 0400 Date of Encounter: 04/17/18 Time of Encounter: 10:20 - Discharge Diagnosis (1) Deep vein thrombosis of lower extremity Priority: Primary Status: Acute Qualifiers: Affected thrombotic vein of extremity: iliac Chronicity: acute Laterality: right Qualified Code(s): I82.421 - Acute embolism and thrombosis of right iliac vein (2) Asthma Priority: Secondary Status: Chronic Qualifiers: Asthma severity: unspecified severity Asthma persistence: unspecified Asthma complication type: unspecified Qualified Code(s): J45.909 - Unspecified asthma, uncomplicated (3) HLD (hyperlipidemia) Priority: Secondary Status: Chronic Qualifiers: Hyperlipidemia type: unspecified Qualified Code(s): E78.5 - Hyperlipidemia, unspecified (4) RLS (restless legs syndrome) Priority: Secondary Status: Chronic (5) Atrial arrhythmia Priority: Secondary Status: Acute Hospital course: Ms. Song is a 62 year old female pmhx rle dvt previously on coumadin, restless leg syndrome and presented with rle pain and swelling. She was admitted for extensive RLE DVT Iliac, CFV, SFV, Popliteal, Peroneal, LSV, GSV. She had no signs or symptoms of PE. Given extensive nature of clot Vasc surg followed pt. She does not require vasc surg intervention and was transtioned off heparin gtt to Xarelto prior to discharge. During her stay she a had a few brief episodes of arrhythmia on tele. It was captured on ekg. I personally discussed with Dr Guzman of cardiology who was kind enough to review tele and ekgs and confirmed findings c/w atrial bigeminy, trigeminy and atrial tachycardia, as well as that no intervention or follow up is required. She was evaluated by PT who recommended SNF placement. Pt discussed with social work and declined. She is agreeable to [facility] for pt/ot. She is discharged in stable condition to home with outpt fu - Time Spent with Patient Total time spent providing and/or coordinating discharge services: Time spent: Greater than 30 minutes (50 min) - Discharge Medications Prescriptions: New Rivaroxaban [Xarelto] 15 mg PO BID tablet Continue Ferrous Sulfate [Iron] 325 mg PO BID DiphenhydraMINE [Benadryl] 50 mg PO BID PRN PRN Reason: Itching rOPINIRole [Requip] 1 mg PO QPM Montelukast [Singulair] 10 mg PO QPM Gabapentin [Neurontin] 300 mg PO BID Omeprazole [PriLOSEC] 40 mg PO DAILY Simvastatin [Zocor] 40 mg PO HS Fluticasone Propionate Nasal [Flonase] 1 spray NS DAILY Beclomethasone Dip 40mcg REDIH [Qvar 40 Mcg Redihaler] 1 puff IH DAILY Discontinued Ibuprofen [Ibu-200] 400 mg PO DAILY PRN PRN Reason: Pain Home Medications: Beclomethasone Dip 40mcg REDIH [Qvar 40 Mcg Redihaler] 1 puff IH DAILY 04/14/18 [History] DiphenhydraMINE [Benadryl] 50 mg PO BID PRN 04/14/18 [History] Ferrous Sulfate [Iron] 325 mg PO BID 04/14/18 [History] Fluticasone Propionate Nasal [Flonase] 1 spray NS DAILY 04/14/18 [History] Gabapentin [Neurontin] 300 mg PO BID 04/14/18 [History] Montelukast [Singulair] 10 mg PO QPM 04/14/18 [History] Omeprazole [PriLOSEC] 40 mg PO DAILY 04/14/18 [History] Simvastatin [Zocor] 40 mg PO HS 04/14/18 [History] rOPINIRole [Requip] 1 mg PO QPM 04/14/18 [History] Rivaroxaban [Xarelto] 15 mg PO BID tablet 04/17/18 [Rx] Allergies/Adverse Reactions: Allergy/AdvReac Type Severity Reaction Status Date / Time Diclofenac [From Voltaren] Allergy Rash Verified 04/15/18 14:45 etodolac Allergy Rash Verified 04/15/18 14:45 ibuprofen Allergy RASH, HIVES Verified 04/15/18 14:45 Date of admission: 04/14/18 14:11 Primary care physician: Karen Thompson CNP Consults: 04/14/18 13:39 Consult to Vascular Surgery [CONS] Stat Consulting Provider: Vascular Surgery Digna Reason for Consult: Multiple DVTs Call Completed: Yes 04/16/18 13:41 Consult to Physical Therapy [CONS] Routine Comment: Evaluate, develop and implement POC Reason for Consult: mobility needs with leg pain/edema from dvt Does patient have active BEDREST order?: No Is patient medically & hemodynamically stable?: Yes Patient assessed for mobility or mobilized this visit?: Yes 04/17/18 11:42 Consult to Storeperson [CONS] Routine Reason for SW Consult: D/C Planning, therapy recommended home health care Discharging clinician: Kristi Kennedy - Constitutional Vitals: Temp Pulse Resp BP Pulse Ox 97.5 F L 68 17 102/70 95 04/17/18 10:13 04/17/18 10:13 04/17/18 10:13 04/17/18 10:13 04/17/18 10:13 Exam: She is awake with boyfriend at bedside. No cp, pressure, sob, palpitations. le edema continues to improve. no pain in leg. gen- alert, awake,appears stated age eyes- pupils equal round , eom intact cv- reg rate and rhythm, normal s1,s2, no murmurs appreciated, non pitting edema RLE, dp/pt pulses intact RLE lungs- ctabl, no wheezing, rhonchi or crackles, normal resp effort on ra neuro- AAOx3, sensation to light touch RLE intact and equal to left lower ext - Patient Status Disposition: Home Health Service Condition: Good Overall status at discharge: patient is progressing back to baseline - Discharge Instructions Follow Up With: Karen Thompson CNP [Primary Care Provider] - Lincoln Roy MD [Partnered Physician] - (1 week for follow up extensive RLE dvt) - Diet and Activity Activity: as per physical therapy, increase activity as tolerated Diet: advance to your usual diet
--- NOTE | 2018-04-17 13:22 | Physician Discharge Referral ---
Home Health/Hosp Referral Info Transfer to: Home Health Provider in Charge Post Discharge: PCP - Diagnosis (1) Deep vein thrombosis of lower extremity Priority: Primary Status: Acute (2) Asthma Priority: Secondary Status: Chronic (3) HLD (hyperlipidemia) Priority: Secondary Status: Chronic (4) RLS (restless legs syndrome) Priority: Secondary Status: Chronic (5) Atrial arrhythmia Priority: Secondary Status: Acute - Respiratory Orders None Smoking Cessation: Smoking cessation has been advised. For more information, call the [place] Tobacco Quit Line at 5-989-HIJT-NOW. - Diet/Nutrition Diet/Nutrition Orders: Cardiac - Activity Activity Orders: Up ad eulalia - Services Needed Following services are medically necessary services: Nursing, Home Health Aide, Physical Therapy, Occupational Therapy - Transfer Medications Home Medications: Beclomethasone Dip 40mcg REDIH [Qvar 40 Mcg Redihaler] 1 puff IH DAILY 04/14/18 [History] DiphenhydraMINE [Benadryl] 50 mg PO BID PRN 04/14/18 [History] Ferrous Sulfate [Iron] 325 mg PO BID 04/14/18 [History] Fluticasone Propionate Nasal [Flonase] 1 spray NS DAILY 04/14/18 [History] Gabapentin [Neurontin] 300 mg PO BID 04/14/18 [History] Montelukast [Singulair] 10 mg PO QPM 04/14/18 [History] Omeprazole [PriLOSEC] 40 mg PO DAILY 04/14/18 [History] Simvastatin [Zocor] 40 mg PO HS 04/14/18 [History] rOPINIRole [Requip] 1 mg PO QPM 04/14/18 [History] Rivaroxaban [Xarelto] 15 mg PO BID tablet 04/17/18 [Rx] Allergies/Adverse Reactions: Allergy/AdvReac Type Severity Reaction Status Date / Time Diclofenac [From Voltaren] Allergy Rash Verified 04/15/18 14:45 etodolac Allergy Rash Verified 04/15/18 14:45 ibuprofen Allergy RASH, HIVES Verified 04/15/18 14:45 Certification: Further, I certify that my clinical findings support that this patient is homebound (i.e. absences from home require considerable and taxing effort and are for medical reasons or restorationism services or infrequently or short duration when for other reasons) because: Homebound Reason: Patient requires assistance of a person or device to safely leave home, Leaving home requires considerable and taxing effort due to condition Attestation: My signature below is to certify that this patient is under my care and that I, or nurse practitioner, or a physician's assistant sales manager working with me, has a [id number] encounter with this patient.
--- NOTE | 2018-04-17 16:19 | Electrocardiograph Report ---
[address] [place] [address] Test Date: 2018-04-16 Pat Name: Serene Lopez Department: 114 Room: [facility] Gender: F History Professor: : [id number] Requested By: [id number] Order Number: [id number] Reading MD: Subha Alexandra Measurements Intervals [place] Rate: 79 P: [place]: 0 QRS: 20 QRSD: 86 T: 22 QT: 361 QTc: 395 Interpretive Statements NORMAL SINUS RHYTHM SHORT [place] INTERVAL PAC'S Electronically Signed On 04-17-2018 16:18:04 EST by Subha Alexandra
== END 2018-04-17 15:49 | disposition home health service (06) ==
LOC: EMEROOARM 10:40 → 3NENU 10:40 → SUATTDRO 14:11 → 3NENU 14:47
PROVIDERS: ADMIT Internal Medicine; ATTEND Internal Medicine

== ENCOUNTER 2020-02-08 14:29 | Observation (INO) ==
[2020-02-08 15:15] LABS: Basophils # 0.1 K/mcL (0.0-0.2); Basophils % 0.6 %; Eosinophils # 0.2 K/mcL (0.0-0.6); Eosinophils % 2.8 %; Hematocrit 41.3 % (35.3-44.9); Hemoglobin 13.2 g/dL (11.5-15.4); Immature Granulocytes % 1.1 % (0-4); Lymphocytes # 1.4 K/mcL (0.6-4.6); Lymphocytes % 16.7 %; Mean Corpuscular Hemoglobin 28.9 pg (28.0-33.3); Mean Corpuscular Volume 90.4 fL (83.0-100.0); Mean Platelet Volume 10.5 fL (9.4-12.4); Monocytes # 0.6 K/mcL (0.0-1.3); Monocytes % 6.9 %; Neutrophils # 5.9 K/mcL (1.6-8.9); Platelet Count 266 K/mcL (140-400); Red Blood Count 4.57 M/mcL (3.82-4.97); Red Cell Distribution Width 13.2 % (11.5-14.5); Segmented Neutrophils % 71.9 %; White Blood Count 8.2 K/mcL (4.3-11.1)
[2020-02-08 15:45] LABS: BUN/Creatinine Ratio 19 (6-26); Blood Urea Nitrogen 22 mg/dL (8-23); Calcium 9.8 mg/dL (8.6-10.3); Carbon Dioxide 21 mEq/L (23-29); Chloride 102 mEq/L (98-107); Glucose 122 mg/dL (70-105); Osmolality,Calculated 283 (280-300); Potassium 4.1 mEq/L (3.5-5.1); Sodium 134 mEq/L (136-145); eGFR For African Americans 57 (> 60); eGFR For Non-African Americans 47 (> 60)
[2020-02-08] MEDS ORDERED: Morphine Sulfate 2 MG/ML SYRINGE IVP ONE (15:58)
[2020-02-08] MEDS ORDERED: Isovue-370 500 ML BOTTLE IVP ONE (15:58)
[2020-02-08 16:03] LABS: Bilirubin,Urine Negative (Negative); Blood,Urine Negative (Negative); Clarity,Urine Turbid (Clear); Color,Urine Yellow (Yellow); Glucose,Urine (UA) Normal (Normal); Hyaline Casts,Urine Moderate per lpf (None Seen); Ketones,Urine Negative (Negative); Leukocyte Esterase,Urine Moderate (Negative); Mucus,Urine Moderate per lpf (None-Few); Nitrite,Urine Negative (Negative); Protein,Urine 50 mg/dL (Neg-Trace); Specific Gravity,Urine 1.029 (1.010-1.025); Squamous Epithelial Cell,Urine Moderate per hpf (None-Few); WBC,Urine 15-30 per hpf (0-3)
[2020-02-08 16:09] LABS: INR 1.2; Prothrombin Time 13.8 Seconds (9.4-12.1)
[2020-02-08 16:11] LABS: Troponin I < 0.03 ng/mL (< 0.04)
[2020-02-08] MEDS ORDERED: *HR* Heparin 5,000 UNIT/ML VIAL IVP PRN ×2 (17:19)
[2020-02-08] MEDS ORDERED: *HR* Heparin 5,000 UNIT/ML VIAL IVP ONE (17:19)
[2020-02-08] MEDS ORDERED: cefTRIAXone 1,000 MG in 0.9 % Sodium Chloride Mini Bag 100 ML IVPB ONE (17:20)
[2020-02-08] MEDS ORDERED: cefTRIAXone 1,000 MG in Water for inj. (sterile) 10 ML IVP ONE (17:30)
[2020-02-08] MEDS ORDERED: Heparin 25,000UNIT/250ML 1/2NS 25,000 UNIT/250 ML IV.SOLN IVC SCH (17:30)
[2020-02-08 18:13] LABS: Adenovirus Not Detected (Not Detect); Bordetella Pertussis Not Detected (Not Detect); Chlamydophila pneumoniae Not Detected (Not Detect); Coronavirus 229E Not Detected (Not Detect); Coronavirus HKU1 Not Detected (Not Detect); Coronavirus NL63 Not Detected (Not Detect); Coronavirus OC43 Not Detected (Not Detect); Human Metapneumovirus Not Detected (Not Detect); Human Rhinovirus/Enterovirus Not Detected (Not Detect); Influenza A Subtype 2009 H1 Not Detected (Not Detect); Influenza B Not Detected (Not Detect); Mycoplasma pneumoniae Not Detected (Not Detect); Parainfluenza Virus 1 Not Detected (Not Detect); Parainfluenza Virus 2 Not Detected (Not Detect); Parainfluenza Virus 3 Not Detected (Not Detect); Parainfluenza Virus 4 Not Detected (Not Detect); Respiratory Syncytial Virus Not Detected (Not Detect); SARS-CoV-2 Not Detected (Not Detect)
[2020-02-08] MEDS ORDERED: Naloxone 0.4 MG/ML INJ IVP PRN (19:14)
[2020-02-08] MEDS ORDERED: Ondansetron 4 MG/2 ML VIAL IVP PRN (19:14)
[2020-02-08] MEDS ORDERED: Acetaminophen 325 MG TABLET PO PRN (19:14)
[2020-02-08 21:13] LABS: Hematocrit 39.5 % (35.3-44.9); Hemoglobin 12.4 g/dL (11.5-15.4); Mean Corpuscular HGB Conc 31.4 g/dL (31.6-35.5); Mean Corpuscular Volume 92.3 fL (83.0-100.0); Mean Platelet Volume 10.9 fL (9.4-12.4); Platelet Count 251 K/mcL (140-400); Red Blood Count 4.28 M/mcL (3.82-4.97); Red Cell Distribution Width 13.2 % (11.5-14.5); White Blood Count 9.8 K/mcL (4.3-11.1)
[2020-02-08 21:26] LABS: Heparin anti-factor XA UFH 0.83 IU/mL (0.30-0.70); INR 1.3; Prothrombin Time 14.6 Seconds (9.4-12.1)
[2020-02-09 04:44] LABS: Basophils # 0.1 K/mcL (0.0-0.2); Basophils % 0.7 %; Eosinophils # 0.4 K/mcL (0.0-0.6); Eosinophils % 4.4 %; Hematocrit 38.2 % (35.3-44.9); Hemoglobin 12.1 g/dL (11.5-15.4); Immature Granulocytes % 1.9 % (0-4); Lymphocytes # 1.8 K/mcL (0.6-4.6); Lymphocytes % 22.3 %; Mean Corpuscular HGB Conc 31.7 g/dL (31.6-35.5); Mean Corpuscular Hemoglobin 28.7 pg (28.0-33.3); Mean Corpuscular Volume 90.5 fL (83.0-100.0); Mean Platelet Volume 10.9 fL (9.4-12.4); Monocytes # 0.6 K/mcL (0.0-1.3); Monocytes % 7.9 %; Platelet Count 254 K/mcL (140-400); Red Blood Count 4.22 M/mcL (3.82-4.97); Red Cell Distribution Width 13.3 % (11.5-14.5); Segmented Neutrophils % 62.8 %
[2020-02-09 04:45] LABS: INR 1.3; Prothrombin Time 14.6 Seconds (9.4-12.1)
[2020-02-09 04:58] LABS: Alanine Aminotransferase 51 Units/L (7-52); Albumin 3.7 g/dL (3.5-5.7); Alkaline Phosphatase 105 Units/L (34-104); Aspartate Amino Transferase 46 Units/L (13-39); BUN/Creatinine Ratio 21 (6-26); Bilirubin,Total 0.7 mg/dL (0.3-1.0); Blood Urea Nitrogen 21 mg/dL (8-23); Calcium 9.1 mg/dL (8.6-10.3); Carbon Dioxide 21 mEq/L (23-29); Chloride 104 mEq/L (98-107); Globulin 3.8 g/dL (2.4-3.5); Glucose 114 mg/dL (70-105); Magnesium 1.9 mg/dL (1.6-2.6); Osmolality,Calculated 284 (280-300); Phosphorous 3.8 mg/dL (2.7-4.5); Potassium 3.8 mEq/L (3.5-5.1); Sodium 135 mEq/L (136-145); Total Protein 7.5 g/dL (6.4-8.9); eGFR For African Americans > 60 (> 60); eGFR For Non-African Americans 54 (> 60)
[2020-02-09 05:03] LABS: C-Reactive Protein 83 mg/L (Less than 10); Lactate Dehydrogenase 237 Units/L (140-271)
[2020-02-09 05:19] LABS: Ferritin > 1500 ng/mL (10-120)
[2020-02-09 08:12] LABS: Adenovirus Not Detected (Not Detect); Bordetella Pertussis Not Detected (Not Detect); Chlamydophila pneumoniae Not Detected (Not Detect); Coronavirus 229E Not Detected (Not Detect); Coronavirus HKU1 Not Detected (Not Detect); Coronavirus NL63 Not Detected (Not Detect); Coronavirus OC43 Not Detected (Not Detect); Human Metapneumovirus Not Detected (Not Detect); Human Rhinovirus/Enterovirus Not Detected (Not Detect); Influenza A Subtype 2009 H1 Not Detected (Not Detect); Influenza B Not Detected (Not Detect); Mycoplasma pneumoniae Not Detected (Not Detect); Parainfluenza Virus 1 Not Detected (Not Detect); Parainfluenza Virus 2 Not Detected (Not Detect); Parainfluenza Virus 3 Not Detected (Not Detect); Parainfluenza Virus 4 Not Detected (Not Detect); Respiratory Syncytial Virus Not Detected (Not Detect)
[2020-02-09 08:14] LABS: SARS-CoV-2 DETECTED (Not Detect)
[2020-02-09] MEDS: Heparin 25,000UNIT/250ML 1/2NS 25,000 UNIT/250 ML IV.SOLN IVC SCH ×3 (10:54→11:15)
[2020-02-09 11:52] VITALS: BP 104/71
[2020-02-09] MEDS ORDERED: *HR* Rivaroxaban 15 MG TABLET PO ONE (14:45)
== END 2020-02-09 16:28 | disposition home health service (06) ==
LOC: 3BNU 14:29 → EMEROOARM 14:29 → 3BNU 19:53
PROVIDERS: ADMIT Internal Medicine; ATTEND Internal Medicine